=== PATIENT | male | born 1995 | race African-American/Black ===

== ENCOUNTER 2016-11-08 07:37 | Emergency (ER) | payer OTHER ==
[~2016-11-08] VITALS: Ht 185.4 cm; Wt 81.6 kg
[2016-11-08] MEDS ORDERED: AZITHROMYCIN 250 MG TABLET PO ONE (08:00)
[2016-11-08] MEDS ORDERED: CEFTRIAXONE IM 250 MG VIAL. IM ONE (08:00)
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
[2016-11-08 08:43] LABS: OBC FLU VALID
--- NOTE | 2016-11-08 08:47 | RAD ---
INDICATION: Testicular pain. COMPARISON: None. TECHNIQUE: Grayscale, color and spectral doppler ultrasound images obtained of the scrotum. FINDINGS: Right Testicle: 4.3 x 3.0 x 2.4 cm. Vascular flow is identified. Left Testicle: 4.5 x 3.0 x 2.3 cm. Vascular flow is identified. 9 mm right epididymal head cyst. IMPRESSION: 1. Vascular flow is identified to the bilateral testicles.
[2016-11-08 09:05] LABS: BILIRUBIN,URINE NEGATIVE (NEG); GLUCOSE,URINE NEGATIVE (NEG); NITRITE,URINE NEGATIVE (NEG); PROTEIN,URINE 30 mg/dL (NEG-TRACE)
[2016-11-08 09:21] LABS: BACTERIA,URINE 0 /HPF (0-FEW); RBC,URINE OCC /HPF (0-2); SQUAMOUS EPITHELIAL CELL,UR FEW /LPF; WBC,URINE OCC /HPF (0-4)
[2016-11-08] MEDS ORDERED: BENZ200C39 PO (09:37)
[2016-11-08] MEDS ORDERED: PROAIR HFA8.5 GM INH (09:37)
[2016-11-08 09:50] VITALS: BP 140/78
== END 2016-11-08 09:50 | disposition home or self-care (01) ==
LOC: ER 07:37
DX: N50.3 Cyst of epididymis (principal); R30.0 Dysuria; J09.X2 Influenza due to identified novel influenza A virus with other respiratory manifestations; R50.9 Fever, unspecified; R06.02 Shortness of breath; F12.10 Cannabis abuse, uncomplicated; Z91.041 Radiographic dye allergy status
CPT/HCPCS: 76870; 81001; 87804; 96372; 99285; J0696; Q0144; 87491; 87591

== ENCOUNTER 2018-06-05 09:03 | Emergency (ER) | payer OTHER ==
[~2018-06-05] VITALS: Ht 185.4 cm; Wt 82.1 kg
[~2018-06-05 09:03] MED LIST: BENZ200C47 PO; PROAIR HFA8.5 GM INH
[2018-06-05 09:23] LABS: BILIRUBIN,URINE SMALL (NEG); CLARITY,URINE CLEAR; COLOR,URINE AMBER; NITRITE,URINE NEGATIVE (NEG); PROTEIN,URINE 30 mg/dL (NEG-TRACE)
[2018-06-05] MEDS ORDERED: IV NORMAL SALINE 1000ML BAG 1,000 ML IV ONE (09:30)
[2018-06-05 09:41] LABS: BACTERIA,URINE 0 /HPF (0-FEW); WBC,URINE RARE /HPF (0-4)
[2018-06-05 10:08] LABS: BASO % 1 % (0-3); EOS # 0.2 x10^3/uL (0.0-0.7); EOS % 5 % (0-3); HEMOGLOBIN 16.3 g/dL (13.0-17.5); LYMPH # 0.9 x10^3/uL (1.0-4.8); LYMPH % 32 % (24-48); MEAN CORPUSCULAR HEMOGLOBIN 33 pg (25-35); MEAN CORPUSCULAR HGB CONC 35 g/dL (31-37); MEAN CORPUSCULAR VOLUME 97 fL (79-100); MONO # 0.3 x10^3/uL (0.0-1.1); MONO % 10 % (0-9); NEUT # 1.5 x10^3uL (1.8-7.7); NEUT % 51 % (31-73); PLATELET COUNT 164 x10^3/uL (140-400); RED BLOOD COUNT 4.87 x10^6/uL (4.30-5.70); WHITE BLOOD COUNT 2.9 x10^3/uL (4.0-11.0)
[2018-06-05 10:10] LABS: CALCIUM 9.3 mg/dL (8.5-10.1); CREATININE 1.1 mg/dL (0.7-1.3); GFR 101.3; POTASSIUM 3.7 mmol/L (3.5-5.1)
[2018-06-05 10:16] LABS: ALBUMIN 4.2 g/dL (3.4-5.0); TOTAL BILIRUBIN 1.1 mg/dL (0.2-1.0); TOTAL PROTEIN 8.4 g/dL (6.4-8.2)
--- NOTE | 2018-06-05 10:40 | RAD ---
CT ABDOMEN PELVIS WO CONTRAST Indication: HEMATURIA [id number], PRIOR SENT
R/O STONE Exposure: One or more of the following individualized dose reduction techniques were utilized for this examination: 1. Automated exposure control 2. Adjustment of the mA and/or kV according to patient size 3. Use of iterative reconstruction technique. Comparison: December 26, 2014 Contrast: No intravenous contrast given. No oral contrast per request. Evaluation of solid viscera, bowel and vasculature is compromised by the noncontrast technique. Lower thorax: Lung bases are clear. Liver: Unremarkable Spleen: Unremarkable Pancreas: Poorly defined due to noncontrast technique and lack of much fat. Adrenals: No evidence of mass. Kidneys: No obvious mass. Urinary tracts: No evidence of urolithiasis or hydronephrosis. Ureters are difficult to follow due to the lack of much fat. Gallbladder: No calcified stone Aorta: Nonaneurysmal Lymph nodes: Suboptimal visualization due to noncontrast technique and lack of much fat, no obvious enlargement. GI tract: No bowel obstruction. No definite acute colitis. Appendix appears within normal limits. Reproductive organs:No evidence of mass. Urinary bladder: Not adequately distended for evaluation. Peritoneum: No evidence of pneumoperitoneum. No free fluid. Abdominal wall: Unremarkable Spine: Mild right convexity scoliosis of the thoracolumbar junction. Bones: No destructive process identified. IMPRESSION: No evidence of urinary tract calculus or hydronephrosis. Electronically signed by: Kwame Laguna MD (06/05/2018 10:37 AM) [facility]
[2018-06-05 11:00] VITALS: BP 132/71
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
[2018-06-05 11:25] LABS: PLT ESTIMATE ADEQUATE (ADEQUATE)
== END 2018-06-05 11:31 | disposition home or self-care (01) ==
LOC: ER 09:03
DX: R31.9 Hematuria, unspecified (principal); D72.819 Decreased white blood cell count, unspecified; F20.9 Schizophrenia, unspecified; F12.10 Cannabis abuse, uncomplicated; Z91.013 Allergy to seafood
CPT/HCPCS: 36415; 74176; 80053; 81001; 85025; 87491; 87591; 99285; J7030

== ENCOUNTER 2018-09-10 10:32 | Emergency (ER) | payer OTHER ==
[~2018-09-10] VITALS: Ht 185.4 cm; Wt 79.4 kg
[~2018-09-10 10:32] MED LIST changes: +ALBU2.5V8 INH; -PROAIR HFA8.5 GM INH
[2018-09-10 10:47] VITALS: BP 147/76
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
[2018-09-10] MEDS ORDERED: ACETAMINOPHEN 500 MG TABLET PO ONE (11:15)
== END 2018-09-10 11:20 | disposition home or self-care (01) ==
LOC: ER 10:32
DX: B34.9 Viral infection, unspecified (principal); Z20.2 Contact with and (suspected) exposure to infections with a predominantly sexual mode of transmission; F20.9 Schizophrenia, unspecified; Z91.013 Allergy to seafood
CPT/HCPCS: 87491; 87591; 99283

== ENCOUNTER 2019-01-28 18:13 | Emergency (ER) | payer OTHER ==
[~2019-01-28] VITALS: Ht 186.7 cm; Wt 84.4 kg
[2019-01-28 19:25] VITALS: BP 141/92
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
[2019-01-28 20:15] LABS: BILIRUBIN,URINE NEGATIVE (NEG); CLARITY,URINE CLEAR; COLOR,URINE YELLOW; NITRITE,URINE NEGATIVE (NEG); PROTEIN,URINE NEGATIVE (NEG-TRACE)
[2019-01-28] MEDS ORDERED: AZITHROMYCIN 250 MG TABLET. PO ONE (20:15)
[2019-01-28] MEDS ORDERED: cefTRIAXone IM 250 MG VIAL IM ONE (20:15)
[2019-01-28 20:25] LABS: BACTERIA,URINE 0 /HPF (0-FEW); RBC,URINE 0 /HPF (0-2); SQUAMOUS EPITHELIAL CELL,UR OCC /LPF; WBC,URINE 0 /HPF (0-4)
== END 2019-01-28 21:04 | disposition home or self-care (01) ==
LOC: ER 18:13
DX: Z20.2 Contact with and (suspected) exposure to infections with a predominantly sexual mode of transmission (principal); F20.9 Schizophrenia, unspecified; Z91.013 Allergy to seafood
CPT/HCPCS: 81001; 87491; 87591; 96372; 99284; J0696; Q0144; 99283

== ENCOUNTER 2019-01-31 14:08 | Emergency (ER) | payer OTHER ==
[~2019-01-31] VITALS: Ht 185.4 cm; Wt 84.4 kg
--- NOTE | 2019-01-31 14:57 | RAD ---
Scrotal ultrasound 01/31/2019 CLINICAL HISTORY: Right scrotal lump. TECHNIQUE: Using a combination of real-time ultrasound imaging and color-flow and pulse Doppler imaging techniques, duplex evaluation of scrotal sac and its contents was performed. Multiple images were obtained. FINDINGS: Both testicles are within normal limits in size and echogenicity. The right testicle measures 5.2 x 3.3 x 2.8 cm in longitudinal, transverse, and AP dimensions. The left testicle measures 4.9 x 2.7 x 2.3 cm in size. No focal abnormality of either testicle is seen. Normal color-flow and pulse doppler imaging to both testicles is noted. Both epididymal heads are within normal limits in size. A 1.1 cm cyst is seen involving the right epididymal head. No abnormality is seen involving the left epididymal head. No hydrocele or varicocele is seen. IMPRESSION: 1.1 cm right epididymal head cyst. Otherwise negative study. Electronically signed by: Armaan Woodard MD (01/31/2019 2:54 PM) [facility]
[2019-01-31 15:00] LABS: BILIRUBIN,URINE NEGATIVE (NEG); CLARITY,URINE CLEAR; COLOR,URINE YELLOW; NITRITE,URINE NEGATIVE (NEG); PH,URINE 6.5; PROTEIN,URINE NEGATIVE (NEG-TRACE); UROBILINOGEN,URINE 0.2 mg/dL (0.2 mg/dL)
[2019-01-31 15:14] LABS: BACTERIA,URINE 0 /HPF (0-FEW); WBC,URINE 0 /HPF (0-4)
[2019-01-31] MEDS ORDERED: CLINDAMYCIN HCL 150 MG CAPSULE. PO ONE (15:30)
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
[2019-01-31 16:00] VITALS: BP 145/88
[2019-01-31] MEDS ORDERED: CLIN300C8 PO (16:03)
== END 2019-01-31 16:15 | disposition home or self-care (01) ==
LOC: ER 14:08
DX: L73.9 Follicular disorder, unspecified (principal); N50.3 Cyst of epididymis; L02.224 Furuncle of groin; F20.9 Schizophrenia, unspecified; Z91.013 Allergy to seafood
CPT/HCPCS: 76870; 81001; 99285-25

== ENCOUNTER 2019-09-02 15:51 | Emergency (ER) | payer MEDICAID, OTHER ==
[~2019-09-02] VITALS: Ht 182.9 cm; Wt 98.4 kg
[~2019-09-02 15:51] MED LIST changes: +CLIN300C8 PO
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
[2019-09-02 16:19] VITALS: BP 169/97
--- NOTE | 2019-09-02 17:02 | RAD ---
Indication: Pain TECHNIQUE: 4 views of the right knee COMPARISON:None FINDINGS: No acute fracture or dislocation. No joint effusion. No significant arthritic changes. There is focal lucency in the anterior aspect of the medial femoral condyle. Impression: Focal lucency in the subchondral medial condyle may represent a osteochondral lesion. Nonemergent MRI of the knee is recommended. Electronically signed by: Griffin King DO (09/02/2019 4:59 PM) [facility]
== END 2019-09-02 17:48 | disposition home or self-care (01) ==
LOC: ER 15:51
DX: M25.561 Pain in right knee (principal); M89.561 Osteolysis, right lower leg; F20.9 Schizophrenia, unspecified; Z91.013 Allergy to seafood
CPT/HCPCS: 29505; 73564; 99284-25